=== PATIENT | female | born 1990 ===

== ENCOUNTER 2018-10-11 21:57 | Inpatient (IN) | payer MEDICAID, OTHER ==
[2018-10-12] MEDS ORDERED: PITOCin/NS 20 UNIT/1000ML DRIP 20,000 MILLIUNITS/1,000 ML BAG IV ONE ×2 (04:55→07:13)
[2018-10-12] MEDS ORDERED: PITOCin/NS 20 UNIT/1000ML DRIP 20 UNITS/1,000 ML BAG IV SCH (04:55)
[2018-10-12] MEDS ORDERED: PHENERGAN PO PRN (05:11)
[2018-10-12] MEDS ORDERED: DULCOLAX PR PRN (05:11)
[2018-10-12] MEDS ORDERED: NORCO 5/325 PO PRN (05:11)
[2018-10-12] MEDS ORDERED: TYLENOL PO PRN (05:11)
[2018-10-12] MEDS ORDERED: ZOFRAN IV PRN (05:11)
[2018-10-12] MEDS ORDERED: MILK OF MAGNESIA PO PRN (05:11)
[2018-10-12] MEDS ORDERED: TUCKS PAD TP PRN (05:11)
[2018-10-12] MEDS ORDERED: LANSINOH TP PRN (05:11)
[2018-10-12] MEDS ORDERED: BENADRYL PO PRN (05:11)
--- NOTE | 2018-10-12 05:18 | Procedure Note ---
OB Delivery Note - Delivery Date of Delivery: 10/12/18 (04:47) Surgeon: COOPER HAMILTON (MYRON) Estimated blood loss: 200cc - Vaginal Delivery presentation: vertex Delivery position: OA Intrapartum events: none Delivery induction: none Delivery monitor: external FHT, external uterine Route of delivery: (04:47) Delivery placenta: spontaneous (04:47) Delivery laceration: none Anesthesia: none Delivery comments: SROM [id number]. viable female ALICIA position over intact perineum at 04:47. placed [id number] on mothers abdomen. Delayed cord clamping then cut by FOB with my guidance. Cord blood collected per hospital protocol. Spontaneous ulloa delivery of intact placenta at 04:52. FF@U-2, small lochia, no clots. No tears or lacerations. EBL 200cc. Infant and mother left in stable condition in L&D. - A at 1 minute: 9 at 5 minutes: 9 Infant Gender: Female (3533 grams, 7lbs 13oz, 20.5")
--- NOTE | 2018-10-12 05:24 | History and Physical Report ---
History of Present Illness Date of examination: 10/12/18 Date of admission: 10/12/18 03:47 Chief complaint: Intense labor pains History of present illness: 28 yo Fe , [place] 10/20/18 38w6d, presents in active labor. Pt received early and consistent care with Deepa Bess (records available and reviewed). course unremarkable. Past History Past Medical History: no pertinent history (Pt denies) Past Surgical History: no surgical history DISH UP PERSON History: denies: abnormal PAP smear, chlamydia, gonorrhea, hepatitis B, hepatitis C, herpes, HIV, syphilis, trichomonas Family/Genetic History: hypertension (Pt mother) Social history: no significant social history, , lives with family, full code. denies: smoking, alcohol abuse, prescription drug abuse, IV drug use - Obstetrical History Expected Date of Delivery: 10/20/18 Actual Gestation: 38 Week(s) 6 Day(s) : 3 Para: 2 Hx # Term Pregnancies: 2 Number of Pregnancies: 0 Spontaneous Abortions: 0 Induced : 0 Number of Living Children: 2 #1 Infant Gender: Male year: 2, Birthweight: 2.722 kg Method of Delivery: Vaginal Gestational age at delivery: 38 Complications: none #2 Gender: Female year: 2,[birth year] Birthweight: 3.685 kg Method of Delivery: Vaginal Gestational age at delivery: 39 Complications: none Medications and Allergies Allergies Allergy/AdvReac Type Severity Reaction Status Date / Time No Known Allergies Allergy Verified 10/12/18 00:37 Active Meds: Active Medications Acetaminophen (Tylenol) 650 mg PO Q4H PRN PRN Reason: Pain MILD(1-3)/Fever >100.5/COMER Acetaminophen/Hydrocodone Bitart ([place] 5/325) 2 each PO Q6H PRN PRN Reason: Pain, Moderate (4-6) Bisacodyl (Dulcolax) 10 mg HI BID PRN PRN Reason: Constipation Diphenhydramine HCl (Benadryl) 25 mg PO Q6H PRN PRN Reason: Itching Ibuprofen (Ibuprofen) 600 mg PO Q6H SHAHEED Magnesium Hydroxide (Milk Of Magnesia) 30 ml PO HS PRN PRN Reason: Constipation Multi-Ingredient Ointment (Lansinoh) 1 applic TP PRN PRN PRN Reason: Sore Nipples Ondansetron HCl (Zofran) 4 mg IV Q8H PRN PRN Reason: Nausea And Vomiting Promethazine HCl (Phenergan) 25 mg PO Q6H PRN PRN Reason: Nausea And Vomiting Sodium Chloride (Sodium Chloride Flush Syringe 10 Ml) 10 ml IV PRN NR Witch Kezia/Glycerin (Tucks Pad) 1 each TP PRN PRN PRN Reason: Hemorrhoid/cleansing/soothing Review of Systems Eyes: normal appearance Cardiovascular: no chest pain, no palpitations, no shortness of breath Respiratory: no shortness of breath Breasts: normal Gastrointestinal: no nausea, no vomiting, no diarrhea, no constipation Genitourinary: normal appearance, contractions, no vaginal bleeding, no leakage of fluid, no genital sores Integumentary: no rash, no sores, no lesions Psychiatric: other (Pt denies) - Vital Signs Vital signs: Vital Signs Pulse Pulse Ox 73 98 10/12/18 00:01 10/12/18 00:01 Temp Pulse Resp BP Pulse Ox 88 126/72 99 10/12/18 04:49 10/12/18 04:49 10/12/18 03:50 - Physical Exam Breasts: Positive: normal Cardiovascular: Regular rate, Normal S1, Normal S2, No murmurs Lungs: Positive: Clear to auscultation, Normal air movement Abdomen: Positive: normal appearance, soft. Negative: distention Genitourinary (Female): Positive: normal external genitalia, normal perenium Vulva: both: normal Vagina: Positive: normal moisture Uterus: Positive: enlarged (Gravid; S=D) Anus/Rectum: Positive: normal perianal skin Extremities: Positive: normal Deep Tendon Reflex Grade: Normal +2 - Obstetrical FHR: category 1 Uterine Contraction Monitor Mode: External Cervical Dilatation: 10 (4 cm on admission per RN, Quickly progressed to complete. ) Cervical Effacement Percentage: 100 station: +1 Uterine Contraction Frequency (min): 2-3 Uterine Contraction Pattern: Irregular Uterine Tone Measurement Phase: Resting Uterine Contraction Intensity: Strong/Firm Results All other labs normal. Assessment and Plan A: Term IUP ar 38w6d GBS Negative Category 1 tracing Active labor P: Admit to L&D; Routine labor orders Anticipate
[2018-10-12 05:30] LABS: Hematocrit 37.6 % (30.3-42.9); Hemoglobin 12.5 gm/dl (10.1-14.3); Mean Corpuscular HGB Conc 33 % (30-34); Mean Corpuscular Volume 87 fl (79-97); Platelet Count 175 K/mm3 (140-440); Red Cell Distribution Width 15.8 % (13.2-15.2)
[2018-10-12] MEDS ORDERED: SODIUM CHLORIDE FLUSH SYRINGE 10 ML IV NR (06:00)
[2018-10-12] MEDS: IBUPROFEN PO SCH ×3 (08:01→21:34)
[2018-10-12 19:10] LABS: Hematocrit 34.6 % (30.3-42.9); Hemoglobin 11.7 gm/dl (10.1-14.3)
[2018-10-13] MEDS: IBUPROFEN PO SCH ×2 (05:10→11:36)
--- NOTE | 2018-10-13 13:32 | Progress Note ---
Assessment and Plan A: day 1 S/P spontaneous vaginal delivery. P: Discharge patient home today. discharge instructions and warning signs discussed in detail with patient. Advised patient to continue taking her vitamins at home. Advised patient to avoid intercourse, lifting and heavy housework, and driving. Advised patient to [facility] up at [facility]; pt. states she already has an appointment for this. Patient voiced understanding of all instructions. Subjective - Subjective Date of service: 10/13/18 Principal diagnosis: /postop day 1 S/P spontaneous vaginal delivery Interval history: /postop day 1 S/P spontaneous vaginal delivery. Patient is doing well, and she desires discharge today. Patient reports small amount of lochia. She is voiding without difficulty, ambul ating well, and tolerating a regular diet. Patient denies headache, chest pain, cough, shortness of breath, leg pain, dizziness, abdominal pain, or heavy bleeding. Patient reports: appetite normal, voiding normally, pain well controlled, flatus, ambulating normally, no dizzy ambulation, no nauseated : doing well, other (/bottlefeeding) Objective - Vital Signs Latest vital signs: Vital Signs Temp Pulse Resp BP BP Pulse Ox 10/13/18 08:03 97.5 F L 62 18 112/66 10/13/18 00:23 98.5 F 65 20 136/73 96 10/12/18 17:17 97.9 F 75 22 111/57 96 Intake and Output 10/12/18 10/13/18 10/13/18 23:59 07:59 15:59 Intake Total 240 480 Balance 240 480 Intake: Oral 240 480 Other: Total, Intake Amount 240 480 # Voids Void 1 1 - Exam Cardiovascular: Present: Regular rate, Normal S1, Normal S2, No murmurs Lungs: Present: Clear to auscultation Abdomen: Present: normal appearance, soft. Absent: distention, tenderness, guarding, rigidity Uterus: Present: normal, firm, fundal height below umbilicus. Absent: bogginess, tenderness Extremities: Present: normal. Absent: tenderness, edema
--- NOTE | 2018-10-13 13:36 | Discharge Summary ---
Providers - Providers Date of Admission: 10/12/18 03:47 Date of discharge: 10/13/18 Attending physician: ZAKI CLEMENT MD None Primary care physician: ZAKI CLEMENT MD Hospitalization Reason for admission: active labor Delivery: Episiotomy: none Laceration: none Other procedures: none complications: none Discharge diagnosis: IUP at term delivered baby: female Pertinent studies: Labs Hospital course: Normal hospital course. Condition at discharge: Good Disposition: DC-01 TO HOME OR SELFCARE - Discharge Diagnoses (1) Term delivered Status: Acute Plan - Provider Discharge Summary Activity: routine, no sex for 6 weeks, no heavy lifting 4 weeks, no strenuous exercise Diet: routine Instructions: routine Additional instructions: Continue taking your vitamin at home. Call your doctor immediately for: * Fever > 100.5 * Heavy vaginal bleeding ( >1 pad per hour) * Severe persistent headache * Shortness of breath * Reddened, hot, painful area to leg or breast - Follow up plan Follow up: ZAKI CLEMENT MD [Primary Care Provider] - 6 Weeks Forms: [facility] Discharge Summary, Discharge Signature Page
[2018-10-13 16:48] VITALS: BP 128/70
== END 2018-10-13 14:19 | disposition home or self-care (01) | DRG 807 ==
LOC: TRG 21:57 → LD 10-12 03:47 → OB 10-12 08:18
PROVIDERS: ADMIT Obstetrics & Gynecology; ATTEND Obstetrics & Gynecology
PROC: 10E0XZZ Delivery of Products of Conception, External Approach (ICD-10-PCS; principal; 2018-10-12)
DX: O80 Encounter for full-term uncomplicated delivery (principal); Z37.0 Single live birth; Z3A.38 38 weeks gestation of pregnancy; Z82.49 Family history of ischemic heart disease and other diseases of the circulatory system
CPT/HCPCS: 36415; 85014; 85018; 85027; 86592; 86850; 86900; 86901; G0378; A6250; J2590

== ENCOUNTER 2021-01-09 22:47 | Emergency (ER) | payer MEDICAID, SELFPAY ==
[2021-01-10 00:55] VITALS: BP 118/73
[2021-01-10] MEDS ORDERED: predniSONE 20 MG TAB PO ONE ×2 (01:06→03:55)
--- NOTE | 2021-01-10 01:53 | XRay Report ---
CHEST 1 VIEW 01/10/2021 12:41 AM INDICATION / CLINICAL INFORMATION: cough, SOB. COMPARISON: None available. FINDINGS: SUPPORT DEVICES: None. HEART / MEDIASTINUM: No significant abnormality. LUNGS / PLEURA: Patchy infiltrate at the mid/lower zones right greater than left. No pneumothorax. ADDITIONAL FINDINGS: No significant additional findings. IMPRESSION: Bilateral pneumonia. Signer Name: Bhaskar Crowder MD Signed: 01/10/2021 1:49 AM Workstation Name: [id number]
--- NOTE | 2021-01-10 02:29 | Emergency Department Report ---
- General Chief Complaint: Upper Respiratory Infection Stated Complaint: CHESTPAIN/COUGH/MALDONADO Source: patient Mode of arrival: Ambulatory Limitations: Language Barrier - History of Present Illness Initial Comments: Patient is a 30-year-old female with no past medical history who complains of acute onset persistent nasal and sinus congestion, frontal sinus pressure and headache, persistent dry cough with wheezing and shortness of breath for the last 1 week, worse in the last 3 days. Patient states that she tested positive for COVID-19 viral infection 2 days ago and that in the last 2 days her symptoms have worsened with persistent cough, generalized weakness and fatigue, shortness of breath, wheezing, intermittent fever and chills, body aches and pains. Patient states that other family members have had similar symptoms and tested positive for COVID-19 viral infection. Patient states that she has never been vaccinated against COVID-19 viral infection. Patient denies dizziness, syncope, chest pain, abdominal pain, seizures, nausea and vomiting or diarrhea, dysuria, urinary frequency and urgency, change in vision, back pain or vaginal bleeding. MD Complaint: cough, rhinorrhea, nasal congestion, other (wheezing and dyspnea) -: Sudden, week(s) (1) Severity: severe Quality: sharp, aching Consistency: constant Improves With: nothing Worsens With: nothing Associated Symptoms: denies other symptoms, fever, chills, myalgias, headache, rhinorrhea, nasal congestion, cough, shortness of breath. denies: diaphoresis, sore throat, stiff neck, chest pain, abdominal pain, nausea, vomiting, diarrhea, dysuria, rash, confusion, right sweats, epistaxis, hoarseness, other Treatments Prior to Arrival: "cold medicine" - Related Data Home Medications Medication Instructions Recorded Confirmed Last Taken Vitamin 1 tab PO DAILY 10/12/18 10/12/18 10/11/18 10:00 Previous Rx's Medication Instructions Recorded Last Taken Type Albuterol Sulfate [Proventil Hfa] 1 - 2 puff IH Q6H PRN #1 hfa.aer.ad 01/10/21 Unknown Rx Ascorbic Acid [Vitamin C] 1,000 mg PO Q12H #60 tablet 01/10/21 Unknown Rx Benzonatate [Tessalon Perles] 100 mg PO Q8HR #30 capsule 01/10/21 Unknown Rx Cetirizine HCl [Zyrtec 10mg tab] 10 mg PO DAILY #30 tablet 01/10/21 Unknown Rx Doxycycline Hyclate 100 mg PO Q12H #20 tablet. 01/10/21 Unknown Rx Zinc Acetate [Galzin 50mg CAP] 50 mg PO DAILY #30 capsule 01/10/21 Unknown Rx Allergies Allergy/AdvReac Type Severity Reaction Status Date / Time No Known Allergies Allergy Verified 10/12/18 00:37 ED Review of Systems ROS: Stated complaint: CHESTPAIN/COUGH/MALDONADO Other details as noted in HPI Constitutional: denies: chills, fever Eyes: denies: eye pain, eye discharge, vision change ENT: congestion. denies: ear pain, throat pain Respiratory: cough, shortness of breath, wheezing Cardiovascular: denies: chest pain, palpitations Endocrine: no symptoms reported Gastrointestinal: denies: abdominal pain, nausea, vomiting, diarrhea Genitourinary: denies: urgency, dysuria, discharge Musculoskeletal: denies: back pain, joint swelling, arthralgia Skin: denies: rash, lesions Neurological: denies: headache, weakness, paresthesias Psychiatric: denies: anxiety, depression Hematological/Lymphatic: denies: easy bleeding, easy bruising ED Past Medical Hx - Past Medical History Previous Medical History?: No Hx Hypertension: No Hx Congestive Heart Failure: No Hx Diabetes: No Hx Deep Vein Thrombosis: No Hx Renal Disease: No Hx Sickle Cell Disease: No Hx Seizures: No Hx Asthma: No Hx COPD: No Hx HIV: No - Surgical History Past Surgical History?: No - Social History Smoking Status: Never Smoker - Medications Home Medications: Home Medications Medication Instructions Recorded Confirmed Last Taken Type Vitamin 1 tab PO DAILY 10/12/18 10/12/18 10/11/18 10:00 History Albuterol Sulfate [Proventil Hfa] 1 - 2 puff IH Q6H PRN #1 hfa.aer.ad 01/10/21 Unknown Rx Ascorbic Acid [Vitamin C] 1,000 mg PO Q12H #60 tablet 01/10/21 Unknown Rx Benzonatate [Tessalon Perles] 100 mg PO Q8HR #30 capsule 01/10/21 Unknown Rx Cetirizine HCl [Zyrtec 10mg tab] 10 mg PO DAILY #30 tablet 01/10/21 Unknown Rx Doxycycline Hyclate 100 mg PO Q12H #20 tablet. 01/10/21 Unknown Rx Zinc Acetate [Galzin 50mg CAP] 50 mg PO DAILY #30 capsule 01/10/21 Unknown Rx ED Physical Exam - General Limitations: Language Barrier General appearance: alert, in no apparent distress - Head Head exam: Present: atraumatic, normocephalic, normal inspection - Eye Eye exam: Present: normal appearance, PERRL, EOMI Pupils: Present: normal accommodation - ENT ENT exam: Present: normal orophraynx, mucous membranes moist, normal external ear exam, other (grossly congested nasal passages) - Neck Neck exam: Present: normal inspection, full ROM - Respiratory Respiratory exam: Present: wheezes (Mildly diffuse coarse wheezes throughout). Absent: respiratory distress, rales, rhonchi, chest wall tenderness, accessory m uscle use, decreased breath sounds, prolonged expiratory - Cardiovascular Cardiovascular Exam: Present: regular rate, normal rhythm, normal heart sounds. Absent: systolic murmur, diastolic murmur, rubs, gallop - GI/Abdominal GI/Abdominal exam: Present: soft, normal bowel sounds. Absent: tenderness, guarding, rebound, hyperactive bowel sounds, hypoactive bowel sounds, organomegaly - Extremities Exam Extremities exam: Present: normal inspection, full ROM, normal capillary refill - Back Exam Back exam: Present: normal inspection, full ROM. Absent: tenderness, CVA tenderness (R), CVA tenderness (L), muscle spasm, paraspinal tenderness, v ertebral tenderness - Neurological Exam Neurological exam: Present: alert, oriented X3, CN II-XII intact, normal gait, reflexes normal - Psychiatric Psychiatric exam: Present: normal affect, normal mood - Skin Skin exam: Present: warm, dry, intact, normal color. Absent: rash ED Course Vital Signs 01/10/21 00:53 Temperature 98.7 F Pulse Rate 80 Respiratory 22 Rate Blood Pressure 118/73 [Right] O2 Sat by Pulse 96 Oximetry ED Medical Decision Making - Radiology Data Radiology results: report reviewed, image reviewed [facility] [address] [place] [address] XRay Report Signed Patient: YADIRA GRAY MR#: [id number] : 1990 Acct:[id number] Age/Sex: 30 / F ADM Date: 01/09/21 Loc: ED Attending Dr: Ordering Physician: DIEGO JOSE DO Date of Service: 01/10/21 Procedure(s): XR chest 1V ap Accession Number(s): [id number] cc: DIEGO JOSE DO Fluoro Time In Minutes: CHEST 1 VIEW 01/10/2021 12:41 AM INDICATION / CLINICAL INFORMATION: cough, SOB. COMPARISON: None available. FINDINGS: SUPPORT DEVICES: None. HEART / MEDIASTINUM: No significant abnormality. LUNGS / PLEURA: Patchy infiltrate at the mid/lower zones right greater than left. No pneumothorax. ADDITIONAL FINDINGS: No significant additional findings. IMPRESSION: Bilateral pneumonia. Signer Name: Bhaskar Crowder MD Signed: 01/10/2021 1:49 AM Workstation Name: [id number] Transcribed By: ES Dictated By: Bhaskar Crowder MD Electronically Authenticated By: Bhaskar Crowder MD Signed Date/Time: 01/10/21148 DD/ 7 TD/TT: - Medical Decision Making This is a 30-year-old female with no past medical history who complains of acute onset persistent nasal and sinus congestion, frontal sinus pressure and headache, persistent dry cough with wheezing and shortness of breath for the last 1 week, worse in the last 3 days. Patient states that she tested positive for COVID-19 viral infection 2 days ago and that in the last 2 days her symptoms have worsened with persistent cough, generalized weakness and fatigue, shortness of breath, wheezing, intermittent fever and chills, body aches and pains. Patient states that other family members have had similar symptoms and tested positive for COVID-19 viral infection. Patient states that she has never been vaccinated against COVID-19 viral infection. Chest x-ray shows patchy infiltrate at the mid/lower zones right greater than left. No pneumothorax. On reevaluation, patient is hemodynamically stable. Patient's oxygen saturation is 96 to 98% in room air. Patient was treated in the ED with oral prednisone and discharged home on medications. Patient was advised to continue to self quarantine at home for 10 days but return to the ED immediately if her symptoms get worse. Patient was also advised to take medications and drink plenty of fluids and to follow-up with the primary care physician after her self quarantine time ends. - Differential Diagnosis Covid-19 pneumonia; URI due to Covid19; bronchitis due to Covid-19 Critical care attestation.: If time is entered above; I have spent that time in minutes in the direct care of this critically ill patient, excluding procedure time. ED Disposition Clinical Impression: Upper respiratory tract infection due to 2019 novel coronavirus, Pneumonia due to severe acute respiratory syndrome coronavirus 2 (SARS-CoV-2) Disposition: 01 HOME / SELF CARE / HOMELESS Is pt being admited?: No Does the pt Need Aspirin: No Condition: Stable Instructions: Bacterial Pneumonia (ED), Upper Respiratory Infection, Adult, [id number], COVID-19 Frequently Asked Questions, COVID-19: How to Protect Yourself and Others - CDC, Community-Acquired Pneumonia, Adult, [id number] Additional Instructions: Chest x-ray shows bilateral lower lobe pneumonia possibly due to Covid 19 viral infection. Your vital signs are stable and the oxygen saturation level is also normal. Therefore take medications with food, drink plenty of fluids, self quarantine at home for 10 days as advised by the CDC, return to the ED immediately if symptoms get worse. Consider obtaining COVID-19 vaccination after you test negative for COVID-19 viral infection. Prescriptions: Doxycycline Hyclate 100 mg PO Q12H #20 tablet. Zinc Acetate [Galzin 50mg CAP] 50 mg PO DAILY #30 capsule Albuterol Sulfate [Proventil Hfa] 1 - 2 puff IH Q6H PRN #1 hfa.aer.ad PRN Reason: Shortness Of Breath Benzonatate [Tessalon Perles] 100 mg PO Q8HR #30 capsule Ascorbic Acid [Vitamin C] 1,000 mg PO Q12H #60 tablet Cetirizine HCl [Zyrtec 10mg tab] 10 mg PO DAILY #30 tablet Referrals: [facility] [Provider Group] - 7-10 days Forms: Work/School Release Form(ED) Time of Disposition: 02:29 Print Language: MONGOLIAN
== END 2021-01-10 05:25 | disposition home or self-care (01) ==
LOC: ED 22:47
DX: U07.1 COVID-19 (principal); J12.82 Pneumonia due to coronavirus disease 2019; Z79.899 Other long term (current) drug therapy
CPT/HCPCS: 71045; 99283; J7512